=== PATIENT | female | born 1970 | race Caucasian/White ===

== ENCOUNTER 2020-12-01 09:04 | Inpatient (IN) | payer OTHER ==
[~2020-12-01] VITALS: Ht 167.6 cm; Wt 90.0 kg
[2020-12-01 09:24] VITALS: BP 153/83
[2020-12-01 10:42] LABS: ABSOLUTE NEUTROPHILS 10.3 thou/uL (1.4-8.2); BASOPHILS 0.4 % (0.0-2.0); EOSINOPHILS 0.6 % (0.0-3.0); HEMATOCRIT 36.8 % (37.0-47.0); HEMOGLOBIN 11.3 gm/dL (12.0-15.0); MCH 20.4 pg (26.0-34.0); MCHC 30.7 g/dL (28.0-37.0); MCV 66.3 fL (80.0-100.0); MONOCYTES 9.7 % (1.0-8.0); PLATELET COUNT 226 thou/uL (150-400); POLYS 83.3 % (36.0-66.0); RBC 5.55 mil/uL (4.20-5.00); RDW 20.9 % (10.5-14.5); WBC 12.4 thou/uL (4.0-11.0)
[2020-12-01 10:45] LABS: URINE BLOOD 3+ (Negative); URINE GLUCOSE-RANDOM* NEGATIVE (Negative); URINE KETONES 1+ (Negative); URINE LEUKOCYTES-REFLEX NEGATIVE (Negative); URINE PROTEIN (DIPSTICK) 2+ (Negative); URINE SPECIFIC GRAVITY >= 1.030 (1.005-1.035)
[2020-12-01 10:49] LABS: ICTOTEST (BILI CONFIRMATORY) Negative (Negative); URINE BILIRUBIN NEGATIVE (Negative); URINE CLARITY HAZY; URINE COLOR AMBER; URINE NITRITE-REFLEX POSITIVE (Negative)
[2020-12-01 11:00] LABS: ALBUMIN 3.3 g/dL (3.4-5.0); POTASSIUM 3.4 mmol/L (3.5-5.1); TOTAL PROTEIN 8.6 g/dL (6.4-8.2)
[2020-12-01 11:04] LABS: ANISOCYTOSIS 2+; HYPOCHROMASIA 1+; LARGE PLATELETS FEW; PLATELET ESTIMATE NORMAL
[2020-12-01 11:05] LABS: CALCIUM 10.2 mg/dL (8.5-10.1)
[2020-12-01 12:17] LABS: MUCUS 4-6 Moderate strn/LPF (None Seen); SQUAMOUS 4-10 Moderate /LPF (0-3)
[2020-12-01 12:19] LABS: FINE GRANULAR CASTS 0-3 Few /LPF (None Seen); HYALINE CASTS 0-3 Few /LPF (None Seen)
[2020-12-01 12:21] LABS: URINE RBC >20 Many /HPF (0-2); URINE WBC-REFLEX 0-5 Rare /HPF (0-5)
[2020-12-01 12:23] LABS: CRYSTALS None Seen /LPF (None Seen)
--- NOTE | 2020-12-01 15:25 | EKG ---
[address] [place] [address] ELECTROCARDIOGRAM REPORT Name: DELFINO CLIFTON Room #: 170-10 ADM IN M.R.#: [id number] Admission: 12/01/20 Attend Phys: Juan Burns MD Discharge: Date of : 74 Report #: [id number] 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1970 Requested By: Vitaliy Olivera Order Number: [id number] MD: Yoel Andrew Measurements Intervals [place] Rate: 139 P: 71 HI: 108 QRS: -14 QRSD: 110 T: -46 QT: 318 QTc: 484 Interpretive Statements Sinus tachycardia Non specific ST-T changes Baseline wander in lead(s) II,III,aVF,V1 No previous ECG available for comparison Electronically Signed On 12-01-2020 15:25:29 VICE PRESIDENT UNDERWRITING by Yoel Andrew [email or web address] <ELECTRONICALLY SIGNED> By: Yoel Andrew MD, [facility] 12/01/20 1525 1237 1237 Yoel Andrew MD, FACC /EPI
--- NOTE | 2020-12-01 21:31 | NUR ---
SPOKE WITH DR DOW. ORDERS WERE GIVEN TO GIVE 5MG OF LOPRESSOR AND REPEAT IN 10 MINS IF NOTHING HAS CHANGED. THEN TO REPEAT Q4H TO IMPROVE ELEVATED HR.
[2020-12-01 23:16] VITALS: BP 120/70
[2020-12-01 23:47] VITALS: BP 111/70
[2020-12-02] VITALS (59 sets, daily range): BP systolic 99–122; BP diastolic 48–82
[2020-12-02 01:09] LABS: AMP/METHAMP Negative (Negative); BARBITURATES Negative (Negative); BENZODIAZEPINES Negative (Negative); COCAINE Negative (Negative); OPIATES POSITIVE (Negative)
[2020-12-02 01:38] LABS: METHADONE Negative (Negative); PCP Negative (Negative)
--- NOTE | 2020-12-02 05:34 | NUR ---
PT CAME UP FROM ER AT 0045. PT A&X4. WITH HR IN 150s AND CLAMPED R NARE NG TUBE. MOTOPROLOL GIVEN TO PT ON ADMINSSION TO ICU BUT THIS SEEMED INEFFECTIVE. INDIGO GREENWOOD NOTIFIED, THIS RN WAS INTRUCTED TO CONNECT NGT TO LIS, AND CALL CARDIOLOGY CONSULTED FOR FURTHER ORDERES REGARDING HR. DR DOW NOTIFED AT 0148, NEW ORDER FOR CARDIZEM RECIEVED AND IMPLEMENTED WITH PRN TITRATION. PT REMAINS ASYMPTOMATIC. PT'S HR BECAME CONTROLLED THIS AM AT 0512 AFTER PT GOT ANOTHER DOSE OF METOPROLOL IN ADDITION ON CARDIZEM GTT ALREADY INFUISNG. PT IS IN AFIB BUT RATE IS CONTROLLED; LESS THAN 110S. OTHER VSS, PT IS ASYMPTOMATIC. NGT UPON ADMISSION TO ICU WAS AT 44. DATA OPERATIONS DIRECTOR TUBE TO 56CM PER KUB INTERPRETATION RECOMENDATIONS. PT IS STABLE FOR NOW. WILL CONTINUE TO MONITOR PER POC.
[2020-12-02 06:02] LABS: CALCIUM 8.8 mg/dL (8.5-10.1); CREATININE 0.7 mg/dL (0.6-1.0); POTASSIUM 3.9 mmol/L (3.5-5.1)
--- NOTE | 2020-12-02 08:00 | 2DMMODE ---
[facility] [place] [address] 2 D/M-MODE ECHOCARDIOGRAM Name: DELFINO CLIFTON Room #: 249-P ADM IN M.R.#: [id number] Admission: 12/01/20 Attend Phys: Juan Burns MD Discharge: Date of : 74 Report #: [id number] THIS REPORT FOR: cc: Devika Sagastume MD, Cynthia MD Santiago, Patrick MD [facility] ~ APPROVED REPORT Study performed: 12/02/2020 06:53:17 EXAM: Comprehensive 2D, Doppler, and color-flow Echocardiogram Patient Location: ICU Room #: 249 Status: routine BSA: 1.95 HR: 95 bpm BP: 115/64 mmHg Rhythm: Atrial Fibrillation Other Information Study Quality: Good Indications Evaluate for tachycardia, structual heart disease. 2D Dimensions RVDd: 41.61 mm IVSd: 10.73 (7-11mm) LVOT Diam: 19.57 (18-24mm) LVDd: 43.55 mm PWd: 9.95 (7-11mm) Ascending Ao: 26.62 (22-36mm) LVDs: 31.26 (25-40mm) Aortic Root: 29.72 mm Volumes Left Atrial Volume (Systole) Single Plane 4CH: 78.77 mL Single Plane 2CH: 75.93 mL LA ESV Index: 43.00 mL/m2 Aortic Valve AoV Peak Irving.: 1.60 m/s AO Peak Gr.: 10.26 mmHg LVOT Max P.47 mmHg LVOT Max V: 1.46 m/s VIC Vmax: 2.73 cm2 [facility] [address] [place] [address] 2 D/M-MODE ECHOCARDIOGRAM Name: DELFINO CLIFTON Room #: 249-P [facility] IN [facility].#: [id number] Admission: 12/01/20 Attend Phys: Saman Underwood Discharge: Date of : 74 Report #: [id number] Mitral Valve MV Decel. Time: 118.77 ms MV E Max Irving.: 1.01 m/s Pulmonary Valve PV Peak Irving.: 1.04 m/s PV Peak Gr.: 4.29 mmHg Tricuspid Valve TR Peak Irving.: 2.67 m/s RAP Estimate: 5.00 mmHg TR Peak Gr.: 29.00 mmHg PA Pressure: 34.00 mmHg Left Ventricle The left ventricle is normal size. There is normal LV segmental wall motion. There is normal left ventricular wall thickness. Left ventricular systolic function is normal. LVEF is 55%. This study is not technically sufficient to allow evaluation of the LV diastolic function. Right Ventricle Right ventricle is at the upper limits of normal. Right ventricle is mildly hypokinetic. Atria Left atrium is moderately dilated. Right atrium is mildly dilated. Aortic Valve The aortic valve is normal in structure. Trace aortic regurgitation. There is no aortic valvular stenosis. Mitral Valve The mitral valve is normal in structure. Mild mitral regurgitation. Tricuspid Valve The tricuspid valve is normal in structure. Mild to moderate tricuspid regurgitation. Estimated PAP is 35mmHg. Pulmonic Valve The pulmonary valve is normal in structure. Mild pulmonic regurgitation. Great Vessels The aortic root is normal in size. The ascending aorta is normal in size. IVC is normal in size and collapses >50% with [facility] [address] [place] [address] 2 D/M-MODE ECHOCARDIOGRAM Name: DELFINO CLIFTON Room #: 249-[facility] IN ..#: [id number] Admission: 12/01/20 Attend Phys: Saman Underwood Discharge: Date of : 74 Report #: [id number] inspiration. Pericardium There is no pericardial effusion. <Conclusion> Normal left ventricular size/wall thickness Ejection fraction 55% Normal right ventricular size/function Mild biatrial enlargement Color-flow Doppler study was performed of the aortic/mitral/tricuspid/pulmonary valve Mild mitral valve insufficiency Mild tricuspid valve insufficiency Pulmonary artery systolic pressure estimated at 35 mmHg No pericardial effusion <ELECTRONICALLY SIGNED> By: Yoel Andrew MD, [facility] 12/02/20 08 08 0800 Yoel Andrew MD, FACC /INF
--- NOTE | 2020-12-02 09:20 | EKG ---
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
--- NOTE | 2020-12-02 15:46 | NUR ---
Chart reviewed and case discussed with the care team. Pt in ICU with plans for surgery today. Pt admitted with massive uterine fybroid and SBO. NG to LIS. Pt also with elev heart rate and cardiology following. Pt on cardezim gtt and iv atb. Pt was working and indep prior to admission. She lives with her mother and has insurance in place for f/u care. Her pcp is Dr. Devika Sagastume. Will follow along and reassess postop for any dc planning needs.
[2020-12-02 16:36] LABS: HEMATOCRIT 26.9 % (37.0-47.0); MCH 21.6 pg (26.0-34.0); MCHC 31.5 g/dL (28.0-37.0); MCV 68.5 fL (80.0-100.0); RBC 3.92 mil/uL (4.20-5.00); RDW 22.1 % (10.5-14.5); WBC 14.9 thou/uL (4.0-11.0)
[2020-12-02 16:37] LABS: HEMOGLOBIN 8.5 gm/dL (12.0-15.0)
[2020-12-03 03:30] VITALS: BP 124/50
[2020-12-03 04:57] LABS: HEMATOCRIT 25.4 % (37.0-47.0); HEMOGLOBIN 7.8 gm/dL (12.0-15.0); MCH 21.2 pg (26.0-34.0); MCHC 30.9 g/dL (28.0-37.0); MCV 68.6 fL (80.0-100.0); RBC 3.7 mil/uL (4.20-5.00); RDW 22.1 % (10.5-14.5); WBC 14.4 thou/uL (4.0-11.0)
[2020-12-03 08:00] VITALS: BP 112/58
[2020-12-03 11:30] VITALS: BP 121/64; BP 128/65
[2020-12-03 15:28] VITALS: BP 124/79
[2020-12-03 19:15] VITALS: BP 127/67
[2020-12-03 23:16] VITALS: BP 126/71
[2020-12-04 03:55] VITALS: BP 134/67
[2020-12-04 06:00] LABS: HEMATOCRIT 25.7 % (37.0-47.0); HEMOGLOBIN 8.4 gm/dL (12.0-15.0); MCH 23.2 pg (26.0-34.0); MCHC 32.6 g/dL (28.0-37.0); RBC 3.62 mil/uL (4.20-5.00); RDW 24.4 % (10.5-14.5); WBC 13.5 thou/uL (4.0-11.0)
--- NOTE | 2020-12-04 06:01 | NUR ---
AOX4/ AX1 TO BSC; ST ON THE MONITOR/HR IN THE 100s STILL; ABD INCISION COVERED BY PROVENA WOUND VAC/NO OUTPUT NOTED; C/O OF PAIN MANAGED WITH PRN MEDICATIONS; ANTIEMETIC ADMINISTERED AFTER AN EPISODE OF EMESIS; NG CLAMPED/OVER 500 ML ASPIRATED FROM PATIENT; PER MD ORDER OK TO RESTART LOW INT SUCTION OF NG TUBE/ 1500 ML TOTAL OUTPUT COLLECTED; PATIENT SLEPT COMFORTABLY AFTER MIDNIGHT; WILL CONTINUE TO MONITOR AND FOLLOW POC.
[2020-12-04 06:28] LABS: CALCIUM 8.3 mg/dL (8.5-10.1); CREATININE 0.7 mg/dL (0.6-1.0); POTASSIUM 3.2 mmol/L (3.5-5.1); TOTAL BILIRUBIN 0.4 mg/dL (0.2-1.0); TOTAL PROTEIN 5.9 g/dL (6.4-8.2)
[2020-12-04 06:55] VITALS: BP 132/75
[2020-12-04 11:05] VITALS: BP 127/77
--- NOTE | 2020-12-04 11:54 | NUR ---
Case discussed with the care team. Pt is pod#2 s/p exp lab, PATI, BART and release of SBO. NG still in place with LIS. Post surgical VAC in place also. No weekend dc anticipated. Will reassess early next week for any dc planning needs.
[2020-12-04 16:08] VITALS: BP 122/67
--- NOTE | 2020-12-04 17:17 | NUR ---
RECEIVED PT'S CARE AROUND 724; PT. ON BED; ALERT; DURING AM ASSESSMENT PT. AOX4; EDUCATED ABOUT NPO; ST. UNDERSTANDING; C/O PAIN OVER ABDOMEN; PRN PAIN MEDICATION GIVEN; DR. CALDERÓN UPDATED ABOUT NG TUBE RESIDUAL; ORDERS ON PLACED; PER NIGHT NURSE REPORT DR. BUTT NOTIFIED ABOUT INCREASE RESIDUAL; DR. BUTT UPDATED ABOUT PT'S HEALTH STATUS; ST. AWARE OF IT; ORDERS ON PLACED; BOLUS GIVEN; POTASSIUM IV GIVEN; DR. PABON ROUNDING IN THE AM; UPDATED ABOUT PT'S INCREASE RESIDUAL; REQUESTED TO AMBULATE PT.; PT. NOTIFIED ABOUT THE IMPORTANCE OF GETTING UP FROM BED DURING THE DAY; ST. UNDERSTANDING; UP TO THE CHAIR DURING THE AM; AMBULATE WITH PT. AROUND THE UNIT TWICE; BACK TO THE BED DURING THE AFTERNOON; REMAINED ABOUT THE IMPORTANCE OF GETTING UP; REQUESTED TO BE ON BED; PRN PAIN MEDICATION GIVEN THROUGH THE DAY; ST ON THE MONITOR; VOIDING IN THE RESTHROOM; NOTICED LOW BLOOD RESIDUAL OVER URINE; PER PT. SPOTS NOTICED OVER TOILET PER WHEN CLEAN AFTER VOID; DR. PABON UPDATED DURING THE AFTERNOON; ST. UNDERSTANDING; ASSESSMENT CHARGED; FOLLOWING POC; WILL PASS ON REPORT;
[2020-12-04 19:00] VITALS: BP 127/85
--- NOTE | 2020-12-05 05:08 | NUR ---
ASSUMED CARE OF THE PATIENT AT 1900; AOX4; AX1 TO TOILET/AMBULATION ENCOURAGED; NPO/LR IVF PER MD ORDER; NG TUBE CONNECTED TO SUCTION WITH BLACK/BROWN COFFEE GROUND OUTPUT; C/O OF PAIN TO LOWER ABD MANAGED WITH PRN MEDICATIONS; WILL CONTINUE TO MONITOR AND FOLLOW POC.
[2020-12-05 05:31] VITALS: BP 111/68
[2020-12-05 06:49] LABS: HEMATOCRIT 25.6 % (37.0-47.0); HEMOGLOBIN 8.2 gm/dL (12.0-15.0)
[2020-12-05 08:15] VITALS: BP 126/87
[2020-12-05 12:03] VITALS: BP 132/90
[2020-12-05 12:04] VITALS: BP 132/90
[2020-12-05 15:18] VITALS: BP 140/91
--- NOTE | 2020-12-05 18:24 | NUR ---
PT IS ALERT AND ORIENTED X4, PLEASANT, AND COOPERATIVE. PT HAS BEEN ALTERNATING BETWEEN BED AND CHAIR, UP TO TOILET TO VOID. NG TUBE IS IN R NARES, WITH CONTINUOUS SUCTION. POC IS TO CONTINUE PAIN MGMT, OBSERVE NG TUBE CONTENTS, AND TO PROMOTE MVMT. PT HAS WOUND VAC MIDLINE. PT HAS HEATING PAD ON LOWER ABDOMEN. FALL PRECAUTIONS IN PLACE. NO CONCERNS AT THIS TIME.
[2020-12-05 19:24] VITALS: BP 123/82
[2020-12-06 03:36] VITALS: BP 123/82
--- NOTE | 2020-12-06 04:47 | NUR ---
ASSUMED PATIENT CARE AT 1845. VITAL SIGNS STABLE WITH PATIENT HAVING NO COMPLAINTS OF NAUSEA. PATIENT DID COMPLAIN OF PAIN FREQUENTLY IN ABDOMEN WHICH WAS TREATED THROUGH MEDICATION AND NON PHARMACOLOGICAL INTERVENTION. FULLY ORIENTED, PATIENT IS ABLE TO CALL APPROPRIATELY FOR NEEDS AND PARTICIPATE IN CARE PLAN. NG TUBE TO LOW, INTERMITTENT, SUCTION WITH OUTPUT NOTED. SURGICAL SITE CLEAN, DRY AND INTACT WITH WOUND VAC IN PLACE. UP MULTIPLE TIMES WITH ASSISTANCE INCIDENT FREE. CONTINUE PLAN OF CARE.
[2020-12-06 08:08] VITALS: BP 130/91
[2020-12-06 11:39] VITALS: BP 126/72
[2020-12-06 15:46] VITALS: BP 127/77
--- NOTE | 2020-12-06 17:28 | NUR ---
PT IS ALERT AND ORIENTED X4, PLEASANT. PT HAD KUB IN AM. PT NG CLAMPED OFF POST PROCEDURE. PT HAS BEEN AMBULATING TO TOILET, AND TRANSFERRING BETWEEN BED AND CHAIR. PT DENIES ANY CONCERNS. DR PABON CONSULTED. GI CONSULTED. POC IS TO KEEP NG TUBE CLAMPED, PROMOTE AMBULATION; HAVE PT REPORT FLATUS. WOUND SITE HAS WOUND VAC, DRESSING CLEAN, DRY, INTACT. FALL PRECAUTIONS IN PLACE.
[2020-12-06 19:50] VITALS: BP 122/66
[2020-12-07 05:09] VITALS: BP 118/73
[2020-12-07 07:25] VITALS: BP 124/75
--- NOTE | 2020-12-07 07:44 | NUR ---
PATIENT CARES WERE ASSUMED AT SHIFT CHANGE. PATIENT WAS ASSESSED AND MEDS WERE PASSED. THE WOUND VAC IS IN PLACE. PATIENT HAS NOT HAD A BM OR PASSED GAS. PASSED IN REPORT TO ASK FOR A SUPPOSITORY TO PROMOTE FUNCTION. 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 MOVING FORWARD WITH HER DISCHARGE PLAN OF CARE.
--- NOTE | 2020-12-07 11:35 | NUR ---
Pt npo total 9 days (3 days prior admit, no food intake, and now start day 6 npo since admit). If diet cannot advance in next 24 hr, recommend change IVF to climinix PPN.
[2020-12-07 12:04] VITALS: BP 115/67
--- NOTE | 2020-12-07 17:59 | NUR ---
PT HAD 150 RESIDUALS AFTER NGT HAS BEEN CLAMPED FOR [address]EN LIQUID[address] AWARE AND ORDERED CLEAR DIET,SMALL AMOUNTS ALLOWED, PT DRANK PART OF SPRITE WITH NO NAUSEA/VOMITTING, STARTED PASSING GAS A COUPLE HOURS AFTER, NO BM YET,
[2020-12-07 19:23] VITALS: BP 140/88
[2020-12-08 08:20] VITALS: BP 117/69
[2020-12-08 11:05] VITALS: BP 135/81
--- NOTE | 2020-12-08 16:06 | PATH ---
[facility] [address] [address] PATHOLOGY RPT PROCEDURE Name: IESHA CLIFTON Room #: 201-P [facility] IN M.R.#: [id number] Admission: 12/01/20 Date of : 74 Discharge: Report #: [id number] Path Case #: [id number] [facility] Accession Number: [id number] . 01 Material submitted: . uterus - UTERUS,TUBES,OVARIES,CERVIX . 01 Clinical history: . ENLARGED UTERUS, OBSTRUCTION, UTERINE FIBROID,SBO . 02 Diagnosis: Uterus, tubes and ovaries, hysterectomy with bilateral salpingo-oophorectomy: - Weakly proliferative endometrium with fixation artifact; negative for hyperplasia or malignancy. - Focal adenomyosis present. - Multiple leiomyomata, ranging from 1.2 to 11.5 cm in greatest dimension. - Moderate to marked serositis, along with fibrous adhesions, as well as fibrinoid degeneration. - Mild chronic cervicitis; negative for dysplasia or malignancy within the cervix. - Fimbriated fallopian tubes showing scattered foci of acute serositis as well as marked congestion. . Bilateral ovaries: - One ovary measuring 8.5 cm showing a mature cystic teratoma. - Second ovary measuring 7.5 cm showing a calcified and ossified mature teratoma associated with hemorrhage and inflammation, compatible with torsion . (IUV:pit 12/07/2020) QTP 12/08/2020 1414 Local . 02 Electronically signed: . Emma Sultana MD, Pathologist NPI- [id number] . 01 Gross description: . The specimen is received in formalin in two containers. The first container is labeled "Iesha Clifton, uterus, tubes, ovaries" and consists of a fragmented hysterectomy specimen with detached fallopian tubes and ovaries. The uterus is received in four pieces measuring in aggregate 21.2 x 20.0 x 10.7 cm and weighing 1467 g. Two of the portions display definitive myometrium with serosa. The serosa is pink-barnett and granular with extensive adhesions. The cervix is not identified. The endometrial cavity dimensions cannot be determined due to the fragmented nature of the specimen. Endometrium is not definitively identified. Numerous barnett-white whorled leiomyomata are present within the myometrium, [address] [address] PATHOLOGY RPT PROCEDURE Name: ELODIAIESHA Room #: 201-P [facility] IN M.R.#: [id number] Admission: 12/01/20 Date of : 74 Discharge: Report #: [id number] Path Case #: [id number] ranging from 1.2-7.2 cm in greatest dimension. The other two portions consist of barnett-white nodular leiomyomata measuring 3.7 and 11.5 cm in greatest dimension. Upon sectioning, hemorrhage and necrosis are not present within the leiomyoma. Also present within the container is a barnett-white smooth ovary weighing 133 g and measuring 8.7 x 6.7 x 5.4 cm. Attached to the ovary is a pink-barnett fimbriated fallopian tube measuring 5.0 cm in length and 1.0 cm in diameter. The ovary is sectioned to reveal a cystic structure containing hair and yellow-barnett amorphous material measuring 7.7 cm in greatest dimension and a red-brown hemorrhagic cystic structure measuring 3.5 cm in greatest dimension. Scant uninvolved ovarian parenchyma is present. A calcified area is also present on the ovarian cyst wall. Also present within the container is a detached fimbriated fallopian tube measuring 6.3 cm in length and 2.0 cm in diameter and a detached barnett-white previously opened possible ovary weighing 100 g and measuring 7.5 x 6.5 x 5.8 cm. Upon sectioning, the possible ovary is diffusely calcified and displays a possible cystic structure or cavity measuring 5.5 cm in greatest dimension. . The second container is labeled "Iesha Clifton, uterus, cervix addition to first specimen" and consists of a portion of cervix and attached myometrium weighing 79 g and measuring 7.5 cm from left to right, 7.3 cm from proximal to distal, and 5.5 cm from anterior to posterior. The ectocervix is pink-barnett and glistening with a slitlike cervical os measuring 1.3 cm. The specimen is opened to reveal a 3.5 x 0.7 cm endocervical canal and a 2.5 x 0.8 cm lower uterine segment. Scant possible endometrium is present. . A1-A2 myometrium with serosa A3-A4 possible endometrium A5-A6 communications representative leiomyomata A7-A8 communications representative fallopian tube #1 A9-A10 communications representative ovary #1 A11-A12 communications representative fallopian tube #2 A13-A14 communications representative possible ovary #2 A15-A16 12:00 and 6:00 cervix A17-A18 lower uterine segment ([facility]; 12/06/2020) . After initial microscopic examination, additional communications representative sections are submitted as follows: . A19-A22: Ovary 1 A23-A26: Ovary 2 (A23 and A26 following decalcification) ([facility]; 12/07/2020) [facility] 12/07/2020 1708 Local . 02 Pathologist provided ICD-10: N80.0, D25.9, N72, D27.9, D27.9 . 02 [facility] [address] [place] [address] PATHOLOGY RPT PROCEDURE Name: IESHA CLIFTON Room #: 201-P [facility] IN M.R.#: [id number] Admission: 12/01/20 Date of : 74 Discharge: Report #: [id number] Path Case #: [id number] [facility] . [id number], [id number], [id number] Specimen Comment: A courtesy copy of this report has been sent to [phone] Specimen Comment: [phone], , Specimen Comment: Report sent to ,DR BUTT,DR DAWN / DR CALDERÓN Performed at: 01 [facility] [address], [place] [id number] MD Chip Egan MD Phone: [phone] Performed at: 02 [facility] [address] [place], [place] [id number] MD Emma Sultana MD Phone: [phone]
--- NOTE | 2020-12-08 17:21 | NUR ---
ASSUMED CARE OF PT AT SHIFT CHANGE. ASSESSMENTS CHARTED. MEDS GIVEN PER JAN. PT A&OX4, C/O PAIN TREATED WITH PO MEDS. NG TUBE DC'D. DIET ADVANCING. PT HAD 2 BMS. POSSIBLE DC TOMORROW. WILL CONTINUE TO MONITOR AND FOLLOW POC.
[2020-12-08 17:30] VITALS: BP 123/76
[2020-12-08 20:40] VITALS: BP 125/65
[2020-12-09 04:54] VITALS: BP 116/69
[2020-12-09 05:13] LABS: HEMATOCRIT 27.7 % (37.0-47.0); HEMOGLOBIN 8.8 gm/dL (12.0-15.0); MCH 23.1 pg (26.0-34.0); MCHC 31.8 g/dL (28.0-37.0); MCV 72.8 fL (80.0-100.0); PLATELET COUNT 438 thou/uL (150-400); RBC 3.81 mil/uL (4.20-5.00); RDW 26.4 % (10.5-14.5); WBC 7.3 thou/uL (4.0-11.0)
[2020-12-09 05:32] LABS: CALCIUM 9.1 mg/dL (8.5-10.1); CREATININE 0.8 mg/dL (0.6-1.0); POTASSIUM 3.7 mmol/L (3.5-5.1)
--- NOTE | 2020-12-09 07:26 | NUR ---
PT SLEPT MOST OF THE NIGHT. A&OX4. ASSESSMENTS CHARTED; MEDS GIVEN PER EMAR. NO COMPLAINTS OF N&V TONIGHT. PROGRESSING TOWARDS DISCHARGE GOALS. CONTINUING TO ASSESS ACCORDING TO POC.
[2020-12-09 07:52] VITALS: BP 122/73
[2020-12-09 10:27] LABS: ABSOLUTE NEUTROPHILS 4.1 thou/uL (1.4-8.2); ATYPICAL LYMPHS 1 %; MYELOCYTES 1 %
[2020-12-09 10:29] LABS: ANISOCYTOSIS 2+; HYPOCHROMASIA 1+; MICROCYTES 1+; OVALOCYTES FEW; POIKILOCYTOSIS 1+; POLYCHROMASIA SLIGHT
[2020-12-09] MEDS ORDERED: HYDROCODON-ACE1 EAC7 PO (10:37)
[2020-12-09] MEDS ORDERED: ZOFRAN 4 MG ORAL4 MG PO (10:37)
[2020-12-09] MEDS ORDERED: PEPCID20 MG PO (10:37)
[2020-12-09 11:26] VITALS: BP 117/75
[2020-12-09 15:39] VITALS: BP 117/75
--- NOTE | 2020-12-11 13:26 | O ---
[facility] [place] [address] OPERATIVE REPORT Name: DELFINO CLIFTON Room #: 201-P [facility] IN M.R.#: [id number] Admission: 12/01/20 Attend Phys: Juan Burns MD Discharge: 12/09/20 Date of : 74 Report #: [id number] THIS REPORT FOR: cc: Devika Sagastume MD,Matilde Flaherty MD, DO ~ DATE OF SERVICE: 12/02/2020 PREOPERATIVE DIAGNOSES: 1. Enlarged uterus. 2. Uterine fibroids. 3. Bilateral ovarian masses. 4. Small bowel obstruction. POSTOPERATIVE DIAGNOSES: 1. Enlarged uterus. 2. Uterine fibroids. 3. Bilateral ovarian masses. 4. Small bowel obstruction. 5. Abdominal and pelvic adhesions. SURGEON: Dr. Matilde Harris. INTRAOPERATIVE REO ASSET MANAGER/CO-SURGEON: Dr. Rich Holden. ANESTHESIA: General. INTRAVENOUS FLUIDS: 2100 mL URINE OUTPUT: 200 mL ESTIMATED BLOOD LOSS: 1800 mL INTRAOPERATIVE TRANSFUSION: 1 unit of packed red blood cells. OPERATIVE FINDINGS: Grossly enlarged uterus with multiple fibroids, left ovarian enlargement with thickened wall, firm nodular right ovary with purulent fluid. Bowel adhesions to the posterior uterus as well as left abdominal wall. DESCRIPTION OF PROCEDURE: The patient was taken to the operating room where general anesthesia was administered and found to be adequate. She was then prepped and draped in normal sterile fashion in dorsal supine position. A Bidr catheter was placed in the patient's bladder prior to prep. A vertical incision was made in the patient's abdomen beginning above the umbilicus and carried [facility] [address] [place] [address] OPERATIVE REPORT Name: DELFINO CLIFTON Room #: 201-P DIS IN M.R.#: [id number] Admission: 12/01/20 Attend Phys: Juan Burns MD Discharge: 12/09/20 Date of : 74 Report #: [id number] down to the pubic symphysis. This was carried through the underlying layer of fascia. The fascia was nicked in the midline. The rectus muscles and fascia were . The peritoneum was identified and entered bluntly. The peritoneal incision was then extended superiorly and inferiorly. Upon entering the abdomen, there was noted a grossly enlarged uterus. Attention was turned to the patient's left aspect of the uterus where, after the bookwalter retractor was placed in the patient's abdomen, the left ovary was visualized along with the left fallopian tube. The infundibulopelvic ligament was transected as well as the fallopian tube from the uterus and the uteroovarian ligament. The left ovary and fallopian tube were handed off for pathology. The left round ligament was then transected followed by a portion of the broad ligament. Attention was then turned to the patient's right pelvis where the right fallopian tube was identified as well as the right ovary. The ovary was noted to be adherent to the pelvic wall as well as to the right aspect of the patient's uterus. The fallopian tube was grasped with Carmen clamp, and this was transected using the EnSeal across the mesosalpinx as well as perpendicular to the uterus and sent for pathology. The right ovary was then grasped, and blunt dissection was performed. The infundibulopelvic ligament was identified and noted to be grossly dilated. This was transected with the EnSeal. The round ligament was identified and transected using the EnSeal. Further blunt dissection of the ovary from the right uterine wall was performed bluntly until the ovary was released. This ovary was also handed off for pathology. There was noted to be a copious amount of fluid that drained from the ovary in the process of removal. At this time, we were able to visualize the posterior aspect of the uterus and noted that the pelvic peritoneum as well as possibly bowel were adhered to the posterior aspect of the uterus. It was at that point in time where a General Surgery intraoperative consult was obtained. Please see Dr. Rich Holden's dictation for lysis of adhesions. Once the adhesions were taken down, bilateral broad ligaments were further dissected and transected. Once we had clearance posteriorly from the patient's bowel, a portion of the uterus was debulked and sent for pathology. The remainder of the broad ligaments as well as the vasculature to the uterus was transected bilaterally. This was performed after the vesicouterine peritoneum was identified, tented upward and transected with metzenbaum scissors. Further dissection of the vesicouterine peritoneum off the anterior aspect of the uterus and cervix was performed bluntly with moist Ray-Barrington sponges. Due to the large nature of the uterus, again debulking was performed to be able to appropriately get to the cervicovaginal junction. After further debulking, that portion of the specimen was handed off for pathology. The cervicovaginal junction was able to be identified. Z clamps were placed directly under the cervix at the apex of the vagina, and the cervix was then transected using heavy Ramsay scissors. The remainder of the uterus with cervix was handed off for pathology. [address] [place] [address] [address] [place] [address] OPERATIVE REPORT Name: DELFINO CLIFTON Room #: 201-P [facility] IN M.R.#: [id number] Admission: 12/01/20 Attend Phys: Juan Burns MD Discharge: 12/09/20 Date of : 74 Report #: [id number] was then used to reapproximate the anterior and posterior aspects of the vaginal cuff. A series of [id number] stitches were then placed to obtain hemostasis of the cuff using 0 Vicryl. The pelvis was copiously irrigated. All irrigant was removed with suction. Surgicel was placed over the right pelvic sidewall. Excellent hemostasis was noted of the vaginal cuff and the remainder of the pelvic pedicles. Please see Dr. Holden's surgical dictation as to further examination of the bowel as well as appendix and gallbladder prior to closure. All sponges and retractors were then removed from the patient's abdomen. The bowel was placed in its normal anatomical position. The abdominal muscles, fascia, and peritoneum were then reapproximated using 0 PDS in a running fashion. The subcutaneous tissue was irrigated. Bovie cautery was used to obtain excellent hemostasis. The skin was then closed with sanjiv. A Prevena dressing was placed over the incision. The patient tolerated the procedure well. Sponge, lap and needle counts were reported as correct, and the patient was taken to the recovery room in stable condition. <ELECTRONICALLY SIGNED> By: Matilde Harris DO 12/11/20 [id number] Matilde Harris, /nt
== END 2020-12-09 16:13 | disposition home or self-care (01) | DRG 853 ==
LOC: ER 09:04 → 2N 14:40 → ICU 14:40 → EROBS 14:40 → ICU 12-02 00:28 → 2N 12-02 18:15
PROVIDERS: Emergency Medicine; Obstetrics & Gynecology; Student in an Organized Health Care Education/Training Program; ADMIT Hospitalist; ATTEND Hospitalist
PROC: 0UT90ZZ Resection of Uterus, Open Approach (ICD-10-PCS; principal; 2020-12-02)
PROC: 0DNN0ZZ Release Sigmoid Colon, Open Approach (ICD-10-PCS; principal; 2020-12-02)
PROC: 0WQF0ZZ Repair Abdominal Wall, Open Approach (ICD-10-PCS; principal; 2020-12-02)
PROC: 0UT70ZZ Resection of Bilateral Fallopian Tubes, Open Approach (ICD-10-PCS; principal; 2020-12-02)
PROC: 0WJG0ZZ Inspection of Peritoneal Cavity, Open Approach (ICD-10-PCS; principal; 2020-12-02)
PROC: 0UT20ZZ Resection of Bilateral Ovaries, Open Approach (ICD-10-PCS; principal; 2020-12-02)
PROC: 30233N1 Transfusion of Nonautologous Red Blood Cells into Peripheral Vein, Percutaneous Approach (ICD-10-PCS; principal; 2020-12-02)
PROC: 0TN60ZZ Release Right Ureter, Open Approach (ICD-10-PCS; principal; 2020-12-02)
DX: A41.9 Sepsis, unspecified organism (principal); J96.00 Acute respiratory failure, unspecified whether with hypoxia or hypercapnia; E43 Unspecified severe protein-calorie malnutrition; K56.609 Unspecified intestinal obstruction, unspecified as to partial versus complete obstruction; N39.0 Urinary tract infection, site not specified; I48.92 Unspecified atrial flutter; D62 Acute posthemorrhagic anemia; I48.20 Chronic atrial fibrillation, unspecified; K56.7 Ileus, unspecified; E87.6 Hypokalemia; D72.823 Leukemoid reaction; K42.9 Umbilical hernia without obstruction or gangrene; D25.9 Leiomyoma of uterus, unspecified; R00.0 Tachycardia, unspecified; Z20.822 Contact with and (suspected) exposure to COVID-19; Z88.0 Allergy status to penicillin; Z68.32 Body mass index [BMI] 32.0-32.9, adult
CPT/HCPCS: 10081; 50010; 50093; 50101; 50386; 50455; 51412; 56455; 56524; 56525; 56771; 57092; 57242; 62110; 62900; 70005